=== PATIENT | male | born 1945 | race Caucasian/White ===

== ENCOUNTER 2016-10-12 08:09 | Inpatient (IN) | payer OTHER ==
[~2016-10-12] VITALS: Ht 180.3 cm; Wt 98.3 kg
[~2016-10-12 08:09] MED LIST: ADVAIR 250/501 DISK IH; Advair 250/50 Diskus IH; Aspirin E.C. PO; CARDIZEM SR120 MG PO; COUMADIN3 MG PO; COUMADIN4 MG PO; Cardizem CD,Cartia X PO; DILAUDID4 MG PO; DUONEB 2.5-0.5 M3 ML AEROSOL; DUONEB3 ML IH; GABAPENTIN100 MG PO; GABAPENTIN300 MG PO; KLOR-CON M2020 MEQ PO; LISINOPRIL10 MG PO; LISINOPRIL5 MG PO; LO-DOSE ASPIRIN81 M2 PO; Levaquin PO; NEXIUM40 MG PO; NITROSTAT0.4 MG SL; PANTOPRAZOLE SO40 MG PO; PLAVIX75 MG PO; PRAVACHOL40 MG PO; PRINIVIL10 MG PO; TRAMADOL HCL50 MG PO; UNKNOWN MEDS; WARFARIN SODIU2.5 MG PO; ZOFRAN4 MG PO; Zocor PO; predniSONE PO
[2016-10-12 09:16] LABS: PROTHROMBIN TIME 10.3 (9.2-11.2)
[2016-10-12 16:00] VITALS: BP 127/83
[2016-10-12 20:01] VITALS: BP 174/75
[2016-10-12 23:17] VITALS: BP 97/53
[2016-10-13 04:35] VITALS: BP 154/76
[2016-10-13 06:23] LABS: HEMATOCRIT 41.3 % (38.0-50.0); MCH 28.1 PG (29.0-34.0); MCHC 32.9 G/DL (30.0-36.0); MCV 85.3 FL (86-99); MEAN PLAT.VOLUME 9.2 uM^3 (9.0-12.4); PLATELET COUNT 154 K/uL (156-360); RBC DIS.WIDTH-SD 50.1 % (39-53); RED BLOOD COUNT 4.84 M/uL (4.00-5.50); WHITE BLOOD COUNT 5.1 K/uL (4.1-10.2)
[2016-10-13 08:05] VITALS: BP 95/57
[2016-10-13 09:03] LABS: ANION GAP 8 MEQ/L (2-14); CHLORIDE 104 MEQ/L (99-109); POTASSIUM 4.6 MEQ/L (3.7-5.4); SAMPLE HEMOLYSIS CHECK 0; SAMPLE ICTERIC CHECK 0; SAMPLE LIPEMIA CHECK 0; SODIUM 139 MEQ/L (136-147)
[2016-10-13 09:08] LABS: GFR ESTIMATE (CALCULATED) > 59 mL/min/; GLUCOSE 99 mg/dL (70-99); UREA NITROGEN (BUN) 13 mg/dL (9-23)
[2016-10-13 12:23] VITALS: BP 145/45
[2016-10-13 17:01] VITALS: BP 144/72
[2016-10-13 19:49] VITALS: BP 165/76
[2016-10-13 23:22] VITALS: BP 132/66
[2016-10-14 03:29] VITALS: BP 115/56
[2016-10-14 08:53] VITALS: BP 151/75
[2016-10-14 11:23] VITALS: BP 150/75
[2016-10-14 23:29] VITALS: BP 172/73
[2016-10-15 08:25] VITALS: BP 185/84
[2016-10-15 11:20] VITALS: BP 137/65
[2016-10-15 15:30] VITALS: BP 108/65
[2016-10-15 23:41] VITALS: BP 116/78
[2016-10-16 07:07] VITALS: BP 123/66
[2016-10-16 15:59] VITALS: BP 132/59
[2016-10-16] MEDS ORDERED: VENTOLIN HFA18 GM IH (17:52)
[2016-10-16] MEDS ORDERED: SPIRIVA RESPIMAT4 GM IH (17:52)
== END 2016-10-16 18:33 | disposition home or self-care (01) | DRG 199 ==
LOC: OPR 08:09 → 2SOUTH 11:46 → 2EAST 11:46
PROVIDERS: Hospitalist; Internal Medicine; Radiology Diagnostic Radiology
DX: J95.811 Postprocedural pneumothorax (principal); J96.01 Acute respiratory failure with hypoxia; C34.31 Malignant neoplasm of lower lobe, right bronchus or lung; J44.9 Chronic obstructive pulmonary disease, unspecified; I10 Essential (primary) hypertension; I73.9 Peripheral vascular disease, unspecified; I25.10 Atherosclerotic heart disease of native coronary artery without angina pectoris; E78.5 Hyperlipidemia, unspecified; Z87.891 Personal history of nicotine dependence; Z88.0 Allergy status to penicillin; Z91.040 Latex allergy status; Z95.1 Presence of aortocoronary bypass graft; Z95.5 Presence of coronary angioplasty implant and graft
CPT/HCPCS: 49405; 70553; 71010; 77012; 80048; 85027; 85610; 88305; 88341 TC; 88342 TC; 94640; 94640 76; 94760; 94799; 99202; C1729; C1769; J3010

== ENCOUNTER → 2016-11-01 | Outpatient (CLI) | payer OTHER ==
[~2016-11-01] MED LIST changes: +SPIRIVA RESPIMAT4 GM IH; +VENTOLIN HFA18 GM IH
[2016-11-01 15:58] LABS: BASE EXCESS -0.1 mEq/L (-3 to +3); BICARBONATE 23.9 mEq/L (22-26); CARBOXY HGB 1.8 % (0-5); COMMENTS - BLOOD GASES A+C+; DEVICE ROOM AIR; FI02 21 %; METHEMOGLOBIN 0.8 % (0-1.5); O2 FLOW 0 L/MIN; PCO2 36 mm Hg (35-45); PO2 79 mm Hg (80-100); SITE RR; pH 7.43 (7.35-7.45)
[2016-11-01 15:59] LABS: TOTAL RESP RATE 18 resp/min
== END | disposition home or self-care (01) ==
LOC: RES 15:40
PROVIDERS: Thoracic Surgery (Cardiothoracic Vascular Surgery)
DX: C34.90 Malignant neoplasm of unspecified part of unspecified bronchus or lung (principal)
CPT/HCPCS: 36600; 82803

== ENCOUNTER 2016-11-11 06:37 | Day surgery (SDC) | payer OTHER ==
[~2016-11-11] VITALS: Ht 180.3 cm; Wt 99.0 kg
[~2016-11-11 06:37] MED LIST changes: +ZESTRIL5 MG PO
[2016-11-11 07:16] VITALS: BP 130/64
[2016-11-11 07:34] LABS: INTER. NORMALIZED RATIO 1.1; PROTHROMBIN TIME 10.8 (9.2-11.2)
[2016-11-11 08:13] LABS: ANION GAP 7 MEQ/L (2-14); CHLORIDE 106 MEQ/L (99-109); POTASSIUM 4.4 MEQ/L (3.7-5.4); SAMPLE HEMOLYSIS CHECK 0; SAMPLE ICTERIC CHECK 0; SAMPLE LIPEMIA CHECK 0; SODIUM 139 MEQ/L (136-147); TOTAL BILIRUBIN 0.4 MG/DL (0.0-1.0)
[2016-11-11 08:19] LABS: ALKALINE PHOSPHATASE 73 IU/L (3-129); GFR ESTIMATE (CALCULATED) 53 mL/min/; GLUCOSE 105 mg/dL (70-99); UREA NITROGEN (BUN) 22 mg/dL (9-23)
[2016-11-11] MEDS ORDERED: HYDROCODON-ACE1 EAC7 PO (10:11)
[2016-11-11] MEDS ORDERED: COLACE100 MG PO (10:11)
[2016-11-11 10:33] VITALS: BP 177/80
== END 2016-11-11 11:42 | disposition home or self-care (01) ==
LOC: SDC 06:37
PROVIDERS: Thoracic Surgery (Cardiothoracic Vascular Surgery)
PROC: 0WBC4ZX Excision of Mediastinum, Percutaneous Endoscopic Approach, Diagnostic (ICD-10-PCS; principal; 2016-11-11)
DX: C34.31 Malignant neoplasm of lower lobe, right bronchus or lung (principal); I10 Essential (primary) hypertension; J44.9 Chronic obstructive pulmonary disease, unspecified; I25.10 Atherosclerotic heart disease of native coronary artery without angina pectoris; Z87.891 Personal history of nicotine dependence
CPT/HCPCS: 80053; 85610; 86850; 86900; 86901; 88305; J0330; J0690; J1100; J2250; J2405; J2710; J3010

== ENCOUNTER 2016-11-25 09:31 | Inpatient (IN) | payer OTHER ==
[~2016-11-25] VITALS: Ht 180.3 cm; Wt 115.7 kg
[2016-11-25] VITALS (8 sets, daily range): BP systolic 124–145; BP diastolic 68–76
[~2016-11-25 09:31] MED LIST changes: +COLACE100 MG PO; +HYDROCODON-ACE1 EAC7 PO; +LOVENOX100 MG/1 M SC
[2016-11-25 11:28] LABS: BASOPHIL COUNT 0.1 K/uL (0-0.1); EOSINOPHIL (%) 8.6 % (0-5); EOSINOPHIL COUNT 0.5 K/uL (0-0.3); HEMATOCRIT 39.7 % (38.0-50.0); IMMATURE GRANULOCYTE (%) 0.5 % (0.0-0.7); IMMATURE GRANULOCYTE COUNT 0.3 K/uL; LYMPHOCYTE COUNT 1.4 K/uL (1.0-2.8); MCH 28.7 PG (29.0-34.0); MCHC 34.3 G/DL (30.0-36.0); MCV 83.8 FL (86-99); MEAN PLAT.VOLUME 8.1 uM^3 (9.0-12.4); MONOCYTE (%) 10.2 % (3-12); MONOCYTE COUNT 0.6 K/uL (0-0.8); NEUTROPHIL (%) 57.1 % (45-76); NEUTROPHIL COUNT 3.6 K/uL (1.8-6.4); PLATELET COUNT 237 K/uL (156-360); RBC DIS.WIDTH-CV 15.9 % (11.8-14.6); RBC DIS.WIDTH-SD 48.3 % (39-53); RED BLOOD COUNT 4.74 M/uL (4.00-5.50); WHITE BLOOD COUNT 6.3 K/uL (4.1-10.2)
[2016-11-25 11:38] LABS: CHLORIDE 108 mEq/L (99-109); INTER. NORMALIZED RATIO 1.1; PROTHROMBIN TIME 10.7 (9.2-11.2); SODIUM 140 mEq/L (136-147)
[2016-11-25 11:40] LABS: GLUCOSE 92 mg/dL (70-99)
[2016-11-25 11:41] LABS: ANION GAP 10 MEQ/L (2-14)
[2016-11-25 11:42] LABS: TOTAL BILIRUBIN 0.3 mg/dL (0.0-1.0)
[2016-11-25 11:44] LABS: ALKALINE PHOSPHATASE 94 IU/L (3-129); GFR ESTIMATE (CALCULATED) 58 mL/min/
[2016-11-25 11:45] LABS: UREA NITROGEN (BUN) 21 mg/dL (9-23)
[2016-11-25 21:45] LABS: METH RESISTANT S AUREUS PCR POSITIVE (NEGATIVE)
[2016-11-25 21:50] LABS: PROBE CHECK PASS
[2016-11-26] VITALS (7 sets, daily range): BP systolic 105–152; BP diastolic 54–70
[2016-11-26 06:15] LABS: ANION GAP 8 MEQ/L (2-14); CHLORIDE 103 MEQ/L (99-109); GFR ESTIMATE (CALCULATED) 58 mL/min/; GLUCOSE 125 mg/dL (70-99); POTASSIUM 5.5 MEQ/L (3.7-5.4); SAMPLE HEMOLYSIS CHECK 0; SAMPLE ICTERIC CHECK 0; SAMPLE LIPEMIA CHECK 0; SODIUM 135 MEQ/L (136-147); UREA NITROGEN (BUN) 25 mg/dL (9-23)
[2016-11-26 06:27] LABS: HEMATOCRIT 35.2 % (38.0-50.0); MCH 27.3 PG (29.0-34.0); MCHC 31.8 G/DL (30.0-36.0); MCV 85.9 FL (86-99); MEAN PLAT.VOLUME 8.8 uM^3 (9.0-12.4); PLATELET COUNT 220 K/uL (156-360); RBC DIS.WIDTH-CV 16.2 % (11.8-14.6); RBC DIS.WIDTH-SD 50.7 % (39-53)
[2016-11-26 06:37] LABS: WHITE BLOOD COUNT 11.1 K/uL (4.1-10.2)
[2016-11-27] VITALS (10 sets, daily range): BP systolic 83–142; BP diastolic 43–56
[2016-11-27 05:53] LABS: HEMATOCRIT 33.6 % (38.0-50.0); MCH 28.3 PG (29.0-34.0); MCHC 32.7 G/DL (30.0-36.0); MCV 86.4 FL (86-99); MEAN PLAT.VOLUME 8.6 uM^3 (9.0-12.4); PLATELET COUNT 200 K/uL (156-360); RBC DIS.WIDTH-CV 16.5 % (11.8-14.6); RBC DIS.WIDTH-SD 52.5 % (39-53); RED BLOOD COUNT 3.89 M/uL (4.00-5.50); WHITE BLOOD COUNT 8.4 K/uL (4.1-10.2)
[2016-11-27 06:17] LABS: ANION GAP 8 MEQ/L (2-14); CHLORIDE 101 MEQ/L (99-109); GFR ESTIMATE (CALCULATED) > 59 mL/min/; GLUCOSE 106 mg/dL (70-99); POTASSIUM 4.6 MEQ/L (3.7-5.4); SAMPLE HEMOLYSIS CHECK 0; SAMPLE ICTERIC CHECK 0; SAMPLE LIPEMIA CHECK 0; SODIUM 135 MEQ/L (136-147); UREA NITROGEN (BUN) 25 mg/dL (9-23)
[2016-11-28] VITALS (14 sets, daily range): BP systolic 83–131; BP diastolic 53–69
[2016-11-28 06:10] LABS: HEMATOCRIT 34.9 % (38.0-50.0); MCH 26.7 PG (29.0-34.0); MCHC 31.2 G/DL (30.0-36.0); MCV 85.5 FL (86-99); MEAN PLAT.VOLUME 8.7 uM^3 (9.0-12.4); PLATELET COUNT 209 K/uL (156-360); RBC DIS.WIDTH-CV 16.3 % (11.8-14.6); RBC DIS.WIDTH-SD 51.1 % (39-53); RED BLOOD COUNT 4.08 M/uL (4.00-5.50); WHITE BLOOD COUNT 10.3 K/uL (4.1-10.2)
[2016-11-28 06:39] LABS: ANION GAP 10 MEQ/L (2-14); CHLORIDE 96 MEQ/L (99-109); GFR ESTIMATE (CALCULATED) > 59 mL/min/; GLUCOSE 125 mg/dL (70-99); POTASSIUM 3.8 MEQ/L (3.7-5.4); SAMPLE HEMOLYSIS CHECK 0; SAMPLE ICTERIC CHECK 0; SAMPLE LIPEMIA CHECK 0; SODIUM 139 MEQ/L (136-147); UREA NITROGEN (BUN) 29 mg/dL (9-23)
[2016-11-29] VITALS (12 sets, daily range): BP systolic 89–136; BP diastolic 45–71
[2016-11-29 05:44] LABS: HEMATOCRIT 30.1 % (38.0-50.0); MCH 28.2 PG (29.0-34.0); MCHC 31.9 G/DL (30.0-36.0); MCV 88.3 FL (86-99); MEAN PLAT.VOLUME 8.7 uM^3 (9.0-12.4); PLATELET COUNT 195 K/uL (156-360); RBC DIS.WIDTH-CV 16.4 % (11.8-14.6); RBC DIS.WIDTH-SD 52.5 % (39-53); RED BLOOD COUNT 3.41 M/uL (4.00-5.50); WHITE BLOOD COUNT 9.9 K/uL (4.1-10.2)
[2016-11-29 06:12] LABS: ANION GAP 6 MEQ/L (2-14); CHLORIDE 98 MEQ/L (99-109); GFR ESTIMATE (CALCULATED) > 59 mL/min/; GLUCOSE 107 mg/dL (70-99); SAMPLE HEMOLYSIS CHECK 0; SAMPLE ICTERIC CHECK 0; SAMPLE LIPEMIA CHECK 0; SODIUM 140 MEQ/L (136-147); UREA NITROGEN (BUN) 24 mg/dL (9-23)
[2016-11-29 18:56] LABS: INTER. NORMALIZED RATIO 1.1; PROTHROMBIN TIME 11.1 (9.2-11.2)
[2016-11-30] VITALS (18 sets, daily range): BP systolic 85–132; BP diastolic 42–69
[2016-11-30 06:19] LABS: INTER. NORMALIZED RATIO 1.2; PROTHROMBIN TIME 11.8 (9.2-11.2)
[2016-11-30 06:28] LABS: ANION GAP 8 MEQ/L (2-14); CHLORIDE 100 MEQ/L (99-109); GFR ESTIMATE (CALCULATED) > 59 mL/min/; GLUCOSE 87 mg/dL (70-99); SAMPLE HEMOLYSIS CHECK 0; SAMPLE ICTERIC CHECK 0; SAMPLE LIPEMIA CHECK 0; SODIUM 141 MEQ/L (136-147); UREA NITROGEN (BUN) 19 mg/dL (9-23)
[2016-11-30 06:38] LABS: HEMATOCRIT 31.3 % (38.0-50.0); MCH 28.1 PG (29.0-34.0); MCHC 31.6 G/DL (30.0-36.0); MCV 88.9 FL (86-99); MEAN PLAT.VOLUME 8.7 uM^3 (9.0-12.4); PLATELET COUNT 201 K/uL (156-360); RBC DIS.WIDTH-CV 16.3 % (11.8-14.6); RBC DIS.WIDTH-SD 52.4 % (39-53); RED BLOOD COUNT 3.52 M/uL (4.00-5.50)
[2016-11-30 06:39] LABS: WHITE BLOOD COUNT 6.3 K/uL (4.1-10.2)
[2016-12-01] VITALS (11 sets, daily range): BP systolic 100–153; BP diastolic 53–90
[2016-12-01 06:02] LABS: INTER. NORMALIZED RATIO 2.4
[2016-12-01 06:20] LABS: PROTHROMBIN TIME 25.4 (9.2-11.2)
[2016-12-01 08:58] LABS: HEMATOCRIT 31.5 % (38.0-50.0); MCH 27.1 PG (29.0-34.0); MCHC 30.5 G/DL (30.0-36.0); MEAN PLAT.VOLUME 9.1 uM^3 (9.0-12.4); PLATELET COUNT 232 K/uL (156-360); RBC DIS.WIDTH-SD 51.7 % (39-53); RED BLOOD COUNT 3.54 M/uL (4.00-5.50); WHITE BLOOD COUNT 7.3 K/uL (4.1-10.2)
[2016-12-01 09:17] LABS: ANION GAP 9 MEQ/L (2-14); CHLORIDE 100 MEQ/L (99-109); GFR ESTIMATE (CALCULATED) > 59 mL/min/; GLUCOSE 93 mg/dL (70-99); POTASSIUM 4.8 MEQ/L (3.7-5.4); SAMPLE HEMOLYSIS CHECK 0; SAMPLE ICTERIC CHECK 0; SAMPLE LIPEMIA CHECK 0; SODIUM 139 MEQ/L (136-147); UREA NITROGEN (BUN) 18 mg/dL (9-23)
[2016-12-01 16:55] LABS: BASE EXCESS 7.7 mEq/L (-3 to +3); CARBOXY HGB 2.2 % (0-5); METHEMOGLOBIN 1.2 % (0-1.5); PO2 70 mm Hg (80-100); pH 7.43 (7.35-7.45)
[2016-12-01 16:56] LABS: BICARBONATE 33.2 mEq/L (22-26); COMMENTS - BLOOD GASES A+C+; PCO2 50 mm Hg (35-45); SITE LR
[2016-12-01 16:57] LABS: DEVICE NON REBREATHER; FI02 100 %; O2 FLOW 15 L/MIN; TOTAL RESP RATE 24 resp/min
[2016-12-02] VITALS (9 sets, daily range): BP systolic 103–199; BP diastolic 52–89
[2016-12-02 05:46] LABS: HEMATOCRIT 29.7 % (38.0-50.0); MCH 27.4 PG (29.0-34.0); MCHC 31.3 G/DL (30.0-36.0); MCV 87.4 FL (86-99); MEAN PLAT.VOLUME 8.7 uM^3 (9.0-12.4); PLATELET COUNT 195 K/uL (156-360); RBC DIS.WIDTH-CV 16.2 % (11.8-14.6); RBC DIS.WIDTH-SD 52.1 % (39-53)
[2016-12-02 05:47] LABS: WHITE BLOOD COUNT 10.9 K/uL (4.1-10.2)
[2016-12-02 06:07] LABS: ANION GAP 10 MEQ/L (2-14); CHLORIDE 100 MEQ/L (99-109); GFR ESTIMATE (CALCULATED) > 59 mL/min/; GLUCOSE 130 mg/dL (70-99); MAGNESIUM 2.3 mg/dl (1.3-2.7); POTASSIUM 4.1 MEQ/L (3.7-5.4); SAMPLE HEMOLYSIS CHECK 0; SAMPLE ICTERIC CHECK 0; SAMPLE LIPEMIA CHECK 0; SODIUM 138 MEQ/L (136-147); UREA NITROGEN (BUN) 24 mg/dL (9-23)
[2016-12-02 06:51] LABS: PROTHROMBIN TIME 76.1 (9.2-11.2)
[2016-12-02 11:02] LABS: PROTHROMBIN TIME 72.9 (9.2-11.2); PTT 68.2 (25-32)
[2016-12-02 11:03] LABS: INTER. NORMALIZED RATIO 6.7
[2016-12-03] VITALS (10 sets, daily range): BP systolic 119–181; BP diastolic 51–106
[2016-12-03 06:42] LABS: HEMATOCRIT 29.3 % (38.0-50.0); INSTRUMENT ABS NEUTROPHIL CT 10.2 K/uL; MCH 27.4 PG (29.0-34.0); MCHC 30.7 G/DL (30.0-36.0); MCV 89.1 FL (86-99); MEAN PLAT.VOLUME 8.8 uM^3 (9.0-12.4); NRBC (%) 0.3 /100 WBC (0-0); PLATELET COUNT 216 K/uL (156-360); RBC DIS.WIDTH-CV 16.1 % (11.8-14.6); RBC DIS.WIDTH-SD 53.4 % (39-53); RED BLOOD COUNT 3.29 M/uL (4.00-5.50); WHITE BLOOD COUNT 11.7 K/uL (4.1-10.2)
[2016-12-03 06:56] LABS: PROTHROMBIN TIME 12.7 (9.2-11.2)
[2016-12-03 06:57] LABS: INTER. NORMALIZED RATIO 1.2
[2016-12-03 07:40] LABS: ALKALINE PHOSPHATASE 54 IU/L (3-129); ANION GAP 11 MEQ/L (2-14); CHLORIDE 101 MEQ/L (99-109); DIRECT BILIRUBIN 0.2 mg/dL (0.0-0.3); GFR ESTIMATE (CALCULATED) > 59 mL/min/; GLUCOSE 104 mg/dL (70-99); MAGNESIUM 2.2 mg/dl (1.3-2.7); POTASSIUM 4.1 MEQ/L (3.7-5.4); SAMPLE HEMOLYSIS CHECK 0; SAMPLE ICTERIC CHECK 0; SAMPLE LIPEMIA CHECK 0; SODIUM 140 MEQ/L (136-147); TOTAL BILIRUBIN 0.6 MG/DL (0.0-1.0); TRIGLYCERIDES 98 MG/DL (Normal: <150); UREA NITROGEN (BUN) 22 mg/dL (9-23)
[2016-12-03 07:46] LABS: PREALBUMIN < 3.0 mg/dL (10-40)
[2016-12-03 07:56] LABS: ABS NEUTROPHIL COUNT 10.8; BAND NEUTROPHILS 8.6 % (0-8.0); EOSINOPHIL ABS CT 0; LYMPHOCYTES 1.7 % (15.0-45.0); PLAT.SUFFICIENCY ADEQUATE; POIKILOCYTOSIS 1+; SEG.NEUTROPHILS 83.6 % (46.0-76.0); SMUDGE CELLS 0.9
[2016-12-04] VITALS (9 sets, daily range): BP systolic 90–150; BP diastolic 57–83
[2016-12-04 06:15] LABS: HEMATOCRIT 28.6 % (38.0-50.0); MCH 27.6 PG (29.0-34.0); MCHC 31.1 G/DL (30.0-36.0); MCV 88.8 FL (86-99); MEAN PLAT.VOLUME 9.2 uM^3 (9.0-12.4); NRBC (%) 0.3 /100 WBC (0-0); PLATELET COUNT 237 K/uL (156-360); RBC DIS.WIDTH-CV 16.1 % (11.8-14.6); RBC DIS.WIDTH-SD 52.6 % (39-53); RED BLOOD COUNT 3.22 M/uL (4.00-5.50); WHITE BLOOD COUNT 12.9 K/uL (4.1-10.2)
[2016-12-04 06:30] LABS: ANION GAP 7 MEQ/L (2-14); CHLORIDE 102 MEQ/L (99-109); GFR ESTIMATE (CALCULATED) > 59 mL/min/; GLUCOSE 131 mg/dL (70-99); MAGNESIUM 2.1 mg/dl (1.3-2.7); POTASSIUM 3.8 MEQ/L (3.7-5.4); SAMPLE HEMOLYSIS CHECK 0; SAMPLE ICTERIC CHECK 0; SAMPLE LIPEMIA CHECK 0; SODIUM 139 MEQ/L (136-147); UREA NITROGEN (BUN) 24 mg/dL (9-23)
[2016-12-04 07:17] LABS: INTER. NORMALIZED RATIO 1.2; PROTHROMBIN TIME 11.9 (9.2-11.2)
[2016-12-04 13:31] LABS: BASE EXCESS 5.5 mEq/L (-3 to +3); BICARBONATE 29.9 mEq/L (22-26); CARBOXY HGB 1.8 % (0-5); METHEMOGLOBIN 1.8 % (0-1.5); PO2 57 mm Hg (80-100); pH 7.46 (7.35-7.45)
[2016-12-04 13:32] LABS: COMMENTS - BLOOD GASES +C; DEVICE HFNC; FI02 15 %; PCO2 42 mm Hg (35-45); SITE RB; TOTAL RESP RATE 32 resp/min
[2016-12-05] VITALS (18 sets, daily range): BP systolic 62–125; BP diastolic 50–78
[2016-12-05 06:37] LABS: INTER. NORMALIZED RATIO 1.2
[2016-12-05 06:42] LABS: ANION GAP 8 MEQ/L (2-14); CHLORIDE 106 MEQ/L (99-109); GFR ESTIMATE (CALCULATED) > 59 mL/min/; GLUCOSE 153 mg/dL (70-99); MAGNESIUM 2.1 mg/dl (1.3-2.7); POTASSIUM 3.7 MEQ/L (3.7-5.4); SAMPLE HEMOLYSIS CHECK 0; SAMPLE ICTERIC CHECK 0; SAMPLE LIPEMIA CHECK 0; SODIUM 142 MEQ/L (136-147); UREA NITROGEN (BUN) 27 mg/dL (9-23)
[2016-12-05 07:40] LABS: BASE EXCESS 3.1 mEq/L (-3 to +3); BICARBONATE 27.9 mEq/L (22-26); CARBOXY HGB 1.7 % (0-5); METHEMOGLOBIN 1.2 % (0-1.5); PCO2 43 mm Hg (35-45); PO2 49 mm Hg (80-100); pH 7.42 (7.35-7.45)
[2016-12-05 07:41] LABS: COMMENTS - BLOOD GASES +C; DEVICE HHFNC; FI02 80 %; O2 FLOW 50 L/MIN; SITE RB; TOTAL RESP RATE 40 resp/min
[2016-12-05 09:37] LABS: BASE EXCESS 1.4 mEq/L (-3 to +3); BICARBONATE 28.9 mEq/L (22-26); CARBOXY HGB 1.6 % (0-5)
[2016-12-05 09:38] LABS: COMMENTS - BLOOD GASES +C; DEVICE PB980; FI02 100 %; MECHANICAL RATE 14 resp/min; MODE ACVC+; PCO2 63 mm Hg (35-45); PO2 61 mm Hg (80-100); SITE RR +A; TOTAL RESP RATE 20 resp/min; pH 7.27 (7.35-7.45)
[2016-12-05 09:39] LABS: PEEP 5 CM/H20; TIDAL VOLUME 470 ML
[2016-12-05 10:15] LABS: BASE EXCESS -0.1 mEq/L (-3 to +3); BICARBONATE 27.3 mEq/L (22-26); CARBOXY HGB 1.4 % (0-5); METHEMOGLOBIN 0.9 % (0-1.5)
[2016-12-05 10:16] LABS: COMMENTS - BLOOD GASES +C; DEVICE PB980; FI02 100 %; MECHANICAL RATE 14 resp/min; MODE ACVC+; PCO2 58 mm Hg (35-45); PO2 98 mm Hg (80-100); SITE RR +A; TIDAL VOLUME 470 ML; TOTAL RESP RATE 34 resp/min; pH 7.28 (7.35-7.45)
[2016-12-05 10:17] LABS: INSPIRATION TIME 0.7 seconds; PEEP 5 CM/H20
[2016-12-05 12:30] LABS: BASE EXCESS 0.6 mEq/L (-3 to +3); BICARBONATE 26.5 mEq/L (22-26); CARBOXY HGB 1.7 % (0-5); METHEMOGLOBIN 1.4 % (0-1.5); pH 7.35 (7.35-7.45)
[2016-12-05 12:31] LABS: COMMENTS - BLOOD GASES C+; DEVICE 980 VENTILATOR; FI02 80 %; MECHANICAL RATE 14 resp/min; MODE AC/PC; PCO2 48 mm Hg (35-45); PO2 60 mm Hg (80-100); SITE RB; TOTAL RESP RATE 30 resp/min
[2016-12-05 12:32] LABS: INSPIRATION TIME 0.7 seconds; PEEP 8 CM/H20; PRESSURE CONTROL VENTILATION 16 CM H20
[2016-12-05 18:17] LABS: CREATINE KINASE 58 IU/L (1-294); TOTAL CK 58 IU/L (1-294)
[2016-12-05 18:23] LABS: TROP-I INTERPRETATION POSITIVE
[2016-12-05 18:35] LABS: CK-MB 3.2 ng/mL (0.0-4.9)
[2016-12-05 21:02] LABS: BASE EXCESS -3.9 mEq/L (-3 to +3); BICARBONATE 22.6 mEq/L (22-26); CARBOXY HGB 1.6 % (0-5); COMMENTS - BLOOD GASES C+; DEVICE VENTILATOR; FI02 100 %; METHEMOGLOBIN 0.9 % (0-1.5); MODE A/C; PCO2 48 mm Hg (35-45); PO2 99 mm Hg (80-100)
[2016-12-05 21:03] LABS: MECHANICAL RATE 20 resp/min; PEEP 10 CM/H20; TIDAL VOLUME 490 ML; TOTAL RESP RATE 36 resp/min; pH 7.28 (7.35-7.45)
[2016-12-05 21:12] LABS: HEMATOCRIT 26.2 % (38.0-50.0); MCH 27.8 PG (29.0-34.0); MCHC 30.5 G/DL (30.0-36.0); MEAN PLAT.VOLUME 9.5 uM^3 (9.0-12.4); PLATELET COUNT 226 K/uL (156-360); RBC DIS.WIDTH-CV 16.9 % (11.8-14.6); RBC DIS.WIDTH-SD 56.9 % (39-53); RED BLOOD COUNT 2.88 M/uL (4.00-5.50); WHITE BLOOD COUNT 11.6 K/uL (4.1-10.2)
[2016-12-05 22:02] LABS: ALKALINE PHOSPHATASE 37 IU/L (3-129); ANION GAP 9 MEQ/L (2-14); CHLORIDE 111 MEQ/L (99-109); GFR ESTIMATE (CALCULATED) 42 mL/min/; GLUCOSE 163 mg/dL (70-99); MAGNESIUM 1.9 mg/dl (1.3-2.7); POTASSIUM 3.9 MEQ/L (3.7-5.4); SAMPLE HEMOLYSIS CHECK 0; SAMPLE ICTERIC CHECK 0; SAMPLE LIPEMIA CHECK 0; SODIUM 141 MEQ/L (136-147); TOTAL BILIRUBIN 0.5 MG/DL (0.0-1.0); UREA NITROGEN (BUN) 35 mg/dL (9-23)
[2016-12-05 22:17] LABS: ADD MIUA? YES; BILIRUBIN NEGATIVE; BLOOD SMALL; COLOR AMBER ((YELLOW)); GLUCOSE (STRIP) 50; KETONES NEGATIVE; LEUKOCYTES NEGATIVE; NITRITE NEGATIVE; PROTEIN (STRIP) 100; UROBILINOGEN 0.2 MG/DL (0.2-1.0)
[2016-12-05 23:03] LABS: BACTERIA 1+ /HPF; EPITHELIAL CELLS RARE /HPF; GRANULAR CASTS 0-5 /LPF; HYALINE CASTS TNTC /LPF; MUCUS NONE SEEN /LPF; RED BLOOD CELLS NONE SEEN /HPF (0-5); UCUL ADDED? NO; UNCLASSIFIED CRYSTALS 3+ /HPF; WHITE BLOOD CELLS 0-5 /HPF (0-5)
[2016-12-06 00:44] LABS: CREATINE KINASE 109 IU/L (1-294); TOTAL CK 109 IU/L (1-294)
[2016-12-06 00:45] LABS: TROP-I INTERPRETATION INDETERMINATE; TROPONIN-I 0.54 ng/mL (0.0-0.30)
[2016-12-06 01:10] LABS: CK-MB 3.6 ng/mL (0.0-4.9)
[2016-12-06 02:12] LABS: POINT-OF-CARE METER ID UU14162636
[2016-12-06 02:23] LABS: VANCOMYCIN, TROUGH 14.1 MCG/ML (10-20)
[2016-12-06 06:16] LABS: POINT-OF-CARE METER ID UU14162636
[2016-12-06 06:39] LABS: INTER. NORMALIZED RATIO 1.2; PROTHROMBIN TIME 12.5 (9.2-11.2)
[2016-12-06 06:42] LABS: CREATINE KINASE 104 IU/L (1-294)
[2016-12-06 06:43] LABS: CK-MB 4.9 ng/mL (0.0-4.9)
[2016-12-06 06:51] LABS: TROP-I INTERPRETATION POSITIVE; TROPONIN-I 0.98 ng/mL (0.0-0.30)
[2016-12-06 06:57] LABS: HEMATOCRIT 26.3 % (38.0-50.0); MCH 27.7 PG (29.0-34.0); MCHC 29.7 G/DL (30.0-36.0); MCV 93.3 FL (86-99); MEAN PLAT.VOLUME 9.7 uM^3 (9.0-12.4); NRBC (%) 0.9 /100 WBC (0-0); PLATELET COUNT 273 K/uL (156-360); RBC DIS.WIDTH-CV 17.6 % (11.8-14.6); RBC DIS.WIDTH-SD 60.9 % (39-53); RED BLOOD COUNT 2.82 M/uL (4.00-5.50)
[2016-12-06 07:14] LABS: ALKALINE PHOSPHATASE 46 IU/L (3-129); ANION GAP 11 MEQ/L (2-14); CHLORIDE 112 MEQ/L (99-109); DIRECT BILIRUBIN 0.1 mg/dL (0.0-0.3); GLUCOSE 196 mg/dL (70-99); SAMPLE HEMOLYSIS CHECK 1; SAMPLE ICTERIC CHECK 0; SAMPLE LIPEMIA CHECK 0; SODIUM 143 MEQ/L (136-147); TRIGLYCERIDES 135 MG/DL (Normal: <150); UREA NITROGEN (BUN) 43 mg/dL (9-23)
[2016-12-06 07:17] LABS: GFR ESTIMATE (CALCULATED) 31 mL/min/; POTASSIUM 4.7 MEQ/L (3.7-5.4)
[2016-12-06 07:18] LABS: MAGNESIUM 2.1 mg/dl (1.3-2.7); TOTAL BILIRUBIN 0.5 MG/DL (0.0-1.0)
[2016-12-06 07:21] LABS: WHITE BLOOD COUNT 18.8 K/uL (4.1-10.2)
[2016-12-06 08:08] LABS: PREALBUMIN < 3.0 mg/dL (10-40)
[2016-12-06 08:22] LABS: BASE EXCESS -9.6 mEq/L (-3 to +3); BICARBONATE 19.5 mEq/L (22-26); CARBOXY HGB 1.8 % (0-5); METHEMOGLOBIN 1.2 % (0-1.5)
[2016-12-06 08:23] LABS: PCO2 60 mm Hg (35-45); PO2 62 mm Hg (80-100); pH 7.12 (7.35-7.45)
[2016-12-06 08:24] LABS: DEVICE 980; FI02 100 %; MECHANICAL RATE 20 resp/min; MODE AC; PEEP 10 CM/H20; SITE ALINE; TIDAL VOLUME 490 ML; TOTAL RESP RATE 28 resp/min
[2016-12-06 08:36] LABS: TOTAL CK 104 IU/L (1-294)
[2016-12-06 09:01] LABS: ALKALINE PHOSPHATASE 45 IU/L (3-129); ANION GAP 9 MEQ/L (2-14); CHLORIDE 114 MEQ/L (99-109); GFR ESTIMATE (CALCULATED) 31 mL/min/; GLUCOSE 206 mg/dL (70-99); MAGNESIUM 2.1 mg/dl (1.3-2.7); POTASSIUM 4.5 MEQ/L (3.7-5.4); SAMPLE HEMOLYSIS CHECK 0; SAMPLE ICTERIC CHECK 0; SAMPLE LIPEMIA CHECK 0; SODIUM 143 MEQ/L (136-147); TOTAL BILIRUBIN 0.5 MG/DL (0.0-1.0); UREA NITROGEN (BUN) 43 mg/dL (9-23)
[2016-12-06 09:29] LABS: ABS NEUTROPHIL COUNT 17.3; ANISOCYTOSIS 1+; ATYPICAL LYMPHOCYTE 0.9 %; BASOPHILS 0.9 %; BURR CELLS 2+; EOSINOPHIL ABS CT 0; GIANT PLATELETS 1+; INSTRUMENT ABS NEUTROPHIL CT 16.3 K/uL; LYMPHOCYTES 2.6 % (15.0-45.0); METAMYELOCYTES 0.9 %; NUCLEATED RBC'S 1.8; OVALOCYTES 1+; PLAT.SUFFICIENCY ADEQUATE; POIKILOCYTOSIS 3+; POLYCHROMASIA 1+; SMUDGE CELLS 8.8; SPHEROCYTES 1+
[2016-12-06 09:32] LABS: BAND NEUTROPHILS 30.7 % (0-8.0); SEG.NEUTROPHILS 61.4 % (46.0-76.0)
[2016-12-06 12:00] VITALS: BP 79/54
[2016-12-06 12:04] LABS: CREATINE KINASE 88 IU/L (1-294); TOTAL CK 88 IU/L (1-294)
[2016-12-06 12:24] LABS: TROP-I INTERPRETATION POSITIVE; TROPONIN-I 1.02 ng/mL (0.0-0.30)
[2016-12-06 12:32] LABS: CK-MB 5.3 ng/mL (0.0-4.9)
[2016-12-06 16:02] LABS: ANION GAP 12 MEQ/L (2-14); CHLORIDE 114 MEQ/L (99-109); GFR ESTIMATE (CALCULATED) 26 mL/min/; GLUCOSE 196 mg/dL (70-99); MAGNESIUM 2.1 mg/dl (1.3-2.7); POTASSIUM 4.7 MEQ/L (3.7-5.4); SAMPLE HEMOLYSIS CHECK 0; SAMPLE ICTERIC CHECK 0; SAMPLE LIPEMIA CHECK 0; SODIUM 143 MEQ/L (136-147); UREA NITROGEN (BUN) 50 mg/dL (9-23)
[2016-12-06 17:00] VITALS: BP 77/58
[2016-12-06 20:00] VITALS: BP 110/72
[2016-12-06 21:00] VITALS: BP 118/74
[2016-12-06 22:00] VITALS: BP 126/74
[2016-12-06 23:00] VITALS: BP 134/75
[2016-12-07] VITALS (13 sets, daily range): BP systolic 98–130; BP diastolic 58–95
[2016-12-07 01:02] LABS: POINT-OF-CARE USER ID LABHNS84
[2016-12-07 06:12] LABS: POINT-OF-CARE METER ID UU13113731; POINT-OF-CARE USER ID LABHNS84
[2016-12-07 06:51] LABS: INTER. NORMALIZED RATIO 1.3; PROTHROMBIN TIME 13.3 (9.2-11.2)
[2016-12-07 07:17] LABS: DIGOXIN 3.1 ng/mL (0.8-2.0)
[2016-12-07 08:01] LABS: ANION GAP 17 MEQ/L (2-14); CHLORIDE 113 MEQ/L (99-109); GLUCOSE 233 mg/dL (70-99); MAGNESIUM 2.4 mg/dl (1.3-2.7); SAMPLE HEMOLYSIS CHECK 1; SAMPLE ICTERIC CHECK 0; SAMPLE LIPEMIA CHECK 0; SODIUM 142 MEQ/L (136-147); UREA NITROGEN (BUN) 60 mg/dL (9-23)
[2016-12-07 08:10] LABS: GFR ESTIMATE (CALCULATED) 17 mL/min/
[2016-12-07 08:11] LABS: POTASSIUM 5.4 MEQ/L (3.7-5.4)
[2016-12-07 11:30] LABS: HEMATOCRIT 27.3 % (38.0-50.0); MCH 28.9 PG (29.0-34.0); MCHC 29.3 G/DL (30.0-36.0); MCV 98.6 FL (86-99); MEAN PLAT.VOLUME 10.9 uM^3 (9.0-12.4); PLATELET COUNT 370 K/uL (156-360); RBC DIS.WIDTH-CV 18.5 % (11.8-14.6); RBC DIS.WIDTH-SD 67.4 % (39-53); RED BLOOD COUNT 2.77 M/uL (4.00-5.50); WHITE BLOOD COUNT 23.2 K/uL (4.1-10.2)
[2016-12-07 11:47] LABS: ABS NEUTROPHIL COUNT 19.8; ANISOCYTOSIS 1+; ATYPICAL LYMPHOCYTE 0.9 %; BAND NEUTROPHILS 26.9 % (0-8.0); BURR CELLS 3+; EOSINOPHIL ABS CT 0.4; EOSINOPHILS 1.7 % (0-5.0); INSTRUMENT ABS NEUTROPHIL CT 19.7 K/uL; LYMPHOCYTES 6.1 % (15.0-45.0); METAMYELOCYTES 2.6 %; NUCLEATED RBC'S 3.5; OVALOCYTES 1+; PLAT.SUFFICIENCY ADEQUATE; POIKILOCYTOSIS 3+; SEG.NEUTROPHILS 58.3 % (46.0-76.0); SMUDGE CELLS 6.1
== END 2016-12-07 16:15 | DRG 163 ==
LOC: 2SOUTH 09:31 → 4WEST 10:37 → 2SOUTH 10:37 → 4WEST 20:23
PROVIDERS: Emergency Medicine; Internal Medicine Nephrology; Physician Assistant; Thoracic Surgery (Cardiothoracic Vascular Surgery)
DX: C34.31 Malignant neoplasm of lower lobe, right bronchus or lung (principal); E43 Unspecified severe protein-calorie malnutrition; K56.7 Ileus, unspecified; J96.01 Acute respiratory failure with hypoxia; A41.02 Sepsis due to Methicillin resistant Staphylococcus aureus; R65.21 Severe sepsis with septic shock; J44.0 Chronic obstructive pulmonary disease with (acute) lower respiratory infection; J15.212 Pneumonia due to Methicillin resistant Staphylococcus aureus; I21.3 ST elevation (STEMI) myocardial infarction of unspecified site; N17.9 Acute kidney failure, unspecified; J98.11 Atelectasis; J98.09 Other diseases of bronchus, not elsewhere classified; I25.10 Atherosclerotic heart disease of native coronary artery without angina pectoris; I10 Essential (primary) hypertension; E66.9 Obesity, unspecified; I73.9 Peripheral vascular disease, unspecified; R73.9 Hyperglycemia, unspecified; E83.51 Hypocalcemia; D64.9 Anemia, unspecified; Z95.1 Presence of aortocoronary bypass graft; Z95.820 Peripheral vascular angioplasty status with implants and grafts; Z87.891 Personal history of nicotine dependence; Z88.0 Allergy status to penicillin; Z88.6 Allergy status to analgesic agent; Z91.040 Latex allergy status; Z68.30 Body mass index [BMI] 30.0-30.9, adult; Z79.01 Long term (current) use of anticoagulants; Z79.82 Long term (current) use of aspirin
CPT/HCPCS: 36600; 36620; 71010; 71020; 74000; 74020; 74022; 76937; 80048; 80048 91; 80053; 80162; 80202; 81003; 82248; 82330; 82550; 82550 91; 82553; 82803; 82948; 83605; 83735; 84100; 84134; 84478; 84484; 84540; 84630 90; 85025; 85027; 85610; 85730; 86850; 86900; 86901; 86920; 87040; 87070; 87077; 87086; 87147; 87186; 87205; 87641; 87801; 88108; 88300; 88309; 88313; 93005; 93306; 94002; 94003; 94010; 94640; 94640 76; 94667; 94668; 94760; 94799; 97530 GO; 97530 GP; 99202; J0171; J0330; J0360; J0610; J0690; J1100; J1160; J1170; J1200; J1644; J1650; J1720; J1815; J1885; J1940; J1956; J2020; J2250; J2270; J2405; J2543; J2550; J2704; J2710; J2765; J2795; J3010; J3370; J3430; J7030; J7050; J7120; P9045; S0028